=== PATIENT | male | born 1940 | race Caucasian/White ===

== ENCOUNTER 2017-01-26 18:44 | Inpatient (IN) | payer OTHER, BC ==
[2017-01-26] MEDS ORDERED: SODIUM CHLORIDE 1,000 ML IV SCH (18:45)
--- NOTE | 2017-01-26 19:01 | PDOC ---
[id number] No Limitations - History of Present Illness Initial Comments: 01/26/17 20:02 This patient was seen and evaluated immediately upon arrival to the ED and this note was entered at a later point of time. The patient is a 76 year old male, with a significant past medical history of hypertension and BPH, who presents to the emergency department via EMS with right sided weakness and right facial droop since approximately 5:30 this evening. EMS was activated after symptoms were persistent and the patient was brought to the ED for further evaluation. Code verdin was activated immediately upon arrival to the ED. The patients girlfriend is at the bedside. Last time known well: 17:30. Allergies: Shellfish derived. Past Surgical History: None reported. Social History: Non smoker. Reports social alcohol consumption. Denies drug use. PCP: Dr. Veronica Scruggs <Shannen Rey - Last Filed: 01/26/17 20:56> - General History Source: Patient, EMS, Significant Other Exam Limitations: No Limitations <Lorenzo Owens - Last Filed: 01/27/17 15:39> - General Stated Complaint: STROKE Time Seen by Provider: 01/26/17 18:45 Past History <Shannen Rey - Last Filed: 01/26/17 20:56> - Past Medical History HTN: Yes Other medical history: enlarged prostate - Psycho/Social/Smoking Cessation Hx Suicidal Ideation: No Smoking History: Never smoked <Lorenzo Owens - Last Filed: 01/27/17 15:39> - Past Medical History Allergies/Adverse Reactions: Allergies Allergy/AdvReac Type Severity Reaction Status Date / Time shellfish derived Allergy Verified 01/26/17 18:50 Home Medications: Ambulatory Orders Clonidine HCl 0.2 mg PO BID 01/26/17 Tamsulosin HCl 0.4 mg PO DAILY 01/26/17 Review of Systems - Review of Systems Able to Perform ROS?: Yes Comments:: 01/26/17 19:59 GENERAL/CONSTITUTIONAL: No fever or chills. No weakness. HEAD, EYES, EARS, NOSE AND THROAT: No change in vision. No ear pain or discharge. No sore throat. CARDIOVASCULAR: No chest pain or shortness of breath. RESPIRATORY: No cough, wheezing, or hemoptysis. GASTROINTESTINAL: No nausea, vomiting, diarrhea or constipation. GENITOURINARY: No dysuria, frequency, or change in urination. MUSCULOSKELETAL: No joint or muscle swelling or pain. No neck or back pain. SKIN: No rash. NEUROLOGIC: +Right facial droop, right sided weakness. No headache, vertigo, loss of consciousness. ENDOCRINE: No increased thirst. No abnormal weight change. HEMATOLOGIC/LYMPHATIC: No anemia, easy bleeding, or history of blood clots. ALLERGIC/IMMUNOLOGIC: No hives or skin allergy. <Shannen Rey - Last Filed: 01/26/17 20:56> *Physical Exam - Vital Signs Last Vital Signs Temp Pulse Resp BP Pulse Ox 97.5 F L 96 H 20 168/130 100 01/26/17 18:50 01/26/17 19:39 01/26/17 19:39 01/26/17 19:39 01/26/17 18:50 - Physical Exam Comments: 01/26/17 20:19 GENERAL: Awake, alert, and fully oriented. HEAD: No signs of trauma. EYES: PERRLA, EOMI, sclera anicteric, conjunctiva clear. ENT: Auricles normal inspection, hearing grossly normal, nares patent, oropharynx clear without exudates. Moist mucosa. NECK: Normal ROM, supple, no lymphadenopathy, JVD, or masses. LUNGS: Breath sounds equal, clear to auscultation bilaterally. No wheezes, and no crackles. HEART: Regular rate and rhythm, normal S1 and S2, no murmurs, rubs or gallops. ABDOMEN: Soft, nontender, normoactive bowel sounds. No guarding, no rebound. No masses. EXTREMITIES: Normal range of motion, no edema. No clubbing or cyanosis. No cords , erythema, or tenderness. SKIN: Warm, dry, normal turgor, no rashes or lesions noted. <Shannen Rey - Last Filed: 01/26/17 20:56> - Vital Signs Last Vital Signs Temp Pulse Resp BP Pulse Ox 97.5 F L 53 L 18 196/135 100 01/26/17 18:50 01/26/17 18:50 01/26/17 18:50 01/26/17 18:50 01/26/17 18:50 - Physical Exam Comments: On initial examination: R facial droop, decreased strength RUE and RLE. +slurred speech. <GracielaLorenzo - Last Filed: 01/27/17 15:39> NIH Stroke Scale - Last Known Well Date/Time & Onset Date Last Known Well: 01/26/17 Time Last Known Well: 17:30 - Initial Evaluation Level of consciousness: Alert Ask patient the month and their age: Answers both correctly Ask patient to open & close eyes; make fist and let go: Obeys both correctly Best gaze (horizontal eye movement): Normal Visual field testing: No visual field loss Facial paresis (Show teeth/raise eyebrows/close eyes tight): Minor paralysis ( flattened nasolabial fold, asymmetry on smiling) Motor Function: Left Arm: Normal Motor Function: Right Arm: No effort against gravity Motor Function: Left Leg: Normal (extends leg 30 degrees for 5 seconds without drift) Motor Function: Right Leg: Some effort against gravity Limb Ataxia: No ataxia Sensory(Use pinprick test arms,legs,trunk,face/side to side): Normal Best language (Describe picture, name items, read sentences): No Aphasia Dysarthria (read several words): Mild to moderate slurring of words Extinction and Inattention: No abnormality - Total Score NIH Stroke Scale Score: 7 <Lorenzo Owens - Last Filed: 01/27/17 15:39> tPA Exclusion Checklist 0-3hr - Time Elapsed Date last known well: 01/26/17 Time last known well: 17:30 Elaspsed time: Day(s) and 22 Hour(s) and 8 Minutes - Thrombolytic Therapy Candidate Is the patient eligible for Thrombolytic Therapy?: No - Exclusion Criteria 0-3hr SBP greater than 185 or DBP greater than 110mmHg despite tx: Yes - Relative Exclusion Criteria 0-3h Rapid improvement: Yes - Ineligibility reason(s) Reasons No tPA given: See reason(s) noted above <GracielaLorenzo - Last Filed: 01/27/17 15:39> TIA Risk Factors - ABCD Score Age: Age = or > 60 Blood Pressure: SBP =/> 140 Clinical Features of TIA: Uni wk w/wo speech impair Duration: TIA duration = or > 60min Diabetes: No Total ABCD2 Score (0-7):: 6 <Lorenzo Owens - Last Filed: 01/27/17 15:39> Heart Score/ECG Review #1 ECG reviewed & interpreted by me at: 19:00 01/26/17 19:27 NSr 98, no std/lupillo, T wave flat III, normal axis, normal deviation, QTC 449 msec <Lorenzo Owens - Last Filed: 01/27/17 15:39> Critical Care Time/MDM Note Total Critical Care Time: 35 Critical Care Statement: The care of this patient involved high complexity decision making to prevent further life threatening deterioration of the patient 's condition and/or to evalute & treat vital organ system(s) failure or risk of failure. - Medical Decision Making Note: 01/26/17 19:54 EXAM: RAD/CHEST X-RAY PORTABLE Reviewed By: Dr. Alexandra Pardo IMPRESSION: No acute cardiopulmonary disease is present. EXAM: CT/ HEAD CT (STROKE) Reviewed By: Dr. Alexandra Pardo IMPRESSION: Moderate atrophy, ventricular dilatation and chronic microvascular ischemic changes. No gross acute infarct is identified. Correlate clinically to determine further evaluation and follow-up. Call placed to [facility] at 19:01. Referred to answering service, awaiting callback. Dr. Banuelos returned call at 19 :02, case discussed. Documentation prepared by Shannen Rey, acting as medical billing assistant for Lorenzo Owens MD. <Shannen Rey - Last Filed: 01/26/17 20:56> - Medical Decision Making Note: 01/26/17 19:44 A portion of this note was documented by scribe services under my direction. I have reviewed the details of the note, within reason, and agree with the documentation with the following case summary and management plan written by me. Patient treated in the ED. Nursing notes are reviewed and incorporated into the medical decision-making. Vital signs reviewed. Peripheral IV access obtained by the nurse, laboratory studies are drawn and sent, reviewed and interpreted by myself. Vital Signs Temp Pulse Resp BP Pulse Ox 97.5 F L 96 H 20 168/130 100 01/26/17 18:50 01/26/17 19:39 01/26/17 19:39 01/26/17 19:39 01/26/17 18:50 76 year old male with past medical history of HTN, BPH p/w right sided weakness. According to EMS and the patient, the patient was having sex with his girlfriend. Reported the event was 45 minutes. After sex, the patient started to develop right sided weakness and right facial droop and slurred speech at 17: 30. The patient was noted to have persistent symptoms and patient was sent to the ED. Upon arrival, pt was noted to have R facial droop, RUE and RLE. Code edmonds was immediately activated. The patient went for the head CT and came back and noted to have resolved symptoms. The patient was re-examined and has CN II-XII intact, 5/5 strength upper and lower extremities, sensation intact, no drift, no dysmetria, heel to henson intact. Given that the patient had rapid improvement, the patient is ineligible for TPA. Case discussed with Dr. Banuelos. Agrees with hold off from TPA. Requests CTA of head and neck. 01/26/17 20:52 CBC, BMP 01/26/17 19:00 01/26/17 19:00 CMP Sodium 142 mmol/L (136-145) 01/26/17 19:00 Potassium 4.0 mmol/L (3.5-5.1) 01/26/17 19:00 Chloride 104 mmol/L (98-107) 01/26/17 19:00 Carbon Dioxide 26 mmol/L (21-32) 01/26/17 19:00 Anion Gap 12 (8-16) 01/26/17 19:00 BUN 19 mg/dL (7-18) H 01/26/17 19:00 Creatinine 0.9 mg/dL (0.7-1.3) 01/26/17 19:00 Creat Clearance w eGFR > 60 (>60) 01/26/17 19:00 POC Glucometer 115.59035 UNITS (()) 01/26/17 18:57 Random Glucose 98 mg/dL (74-106) 01/26/17 19:00 Calcium 9.8 mg/dL (8.5-10.1) 01/26/17 19:00 Total Bilirubin 0.4 mg/dL (0.2-1.0) 01/26/17 19:00 AST 22 U/L (15-37) 01/26/17 19:00 ALT 30 U/L (12-78) 01/26/17 19:00 Alkaline Phosphatase 96 U/L (45-117) 01/26/17 19:00 Creatine Kinase 157 IU/L (39-308) 01/26/17 19:00 CK-MB (CK-2) Rel Index Cancelled 01/26/17 19:00 Troponin I < 0.02 ng/ml (0.00-0.05) 01/26/17 19:00 Total Protein 7.4 g/dl (6.4-8.2) 01/26/17 19:00 Albumin 4.3 g/dl (3.4-5.0) 01/26/17 19:00 Triglycerides 147 mg/dL (35-160) 01/26/17 19:00 Cholesterol 213 mg/dL (50-200) H 01/26/17 19:00 Total LDL Cholesterol 132 mg/dL (5-100) H 01/26/17 19:00 HDL Cholesterol 59 mg/dL (40-60) 01/26/17 19:[address] Mccormack. She accepts patient to stroke unit admission. <Lorenzo Owens - Last Filed: 01/27/17 15:39> Discharge Disposition <Shannen Rey - Last Filed: 01/26/17 20:56> - Discharge Dispostion Admit: Yes <Lorenzo Owens - Last Filed: 01/27/17 15:39> - Diagnosis TIA (transient ischemic attack) Qualifiers: Transient cerebral ischemia type: unspecified Qualified Code(s): G45.9 - Transient cerebral ischemic attack, unspecified - Referrals
[2017-01-26 19:13] VITALS: BMI 22.9
[2017-01-26] MEDS ORDERED: ASPIRIN 81 MG CHEWABLE TABLETS PO ONE (19:53)
[2017-01-26 19:54] LABS: BASOPHIL 0.4 % (0-2.0); EOSINOPHIL 1.7 % (0-4.5); MCH 31.5 pg (25.7-33.7); MCHC 33.3 g/dl (32.0-35.9); MEAN CELL VOLUME 94.6 fl (80-96); MEAN PLT VOLUME 10.3 fl (7.5-11.1); NEUTROPHILS 71.9 % (42.8-82.8); PLATELET COUNT 222 K/MM3 (134-434); RDW 15.3 % (11.9-15.9); WHITE BLOOD COUNT 9.7 K/mm3 (4.0-10.0)
[2017-01-26 20:22] LABS: INR 1.04 (0.82-1.09); PROTHROMBIN TIME (PATIENT) 11.5 SEC (9.98-11.88)
[2017-01-26 20:36] LABS: ALBUMIN 4.3 g/dl (3.4-5.0); ANION GAP 12 (8-16); CALCIUM 9.8 mg/dL (8.5-10.1); CHOLESTEROL 213 mg/dL (50-200); CO2 26 mmol/L (21-32); CREATININE 0.9 mg/dL (0.7-1.3); GLUCOSE,RANDOM 98 mg/dL (74-106); LDL CHOLESTEROL (ONLY SJRH) 132 mg/dL (5-100); SGOT/AST 22 U/L (15-37); SGPT/ALT 30 U/L (12-78)
[2017-01-26 20:37] LABS: ALK PHOS 96 U/L (45-117); BILIRUBIN,TOTAL 0.4 mg/dL (0.2-1.0); TOT PROT 7.4 g/dl (6.4-8.2); TROPONIN I < 0.02 ng/ml (0.00-0.05)
[2017-01-26] MEDS ORDERED: cloNIDine HCL 0.1 MG TABLET PO ONE (20:52)
[2017-01-26] MEDS ORDERED: METOPROLOL TARTRATE 5 MG/5 ML VIAL IVPUSH PRN (21:26)
--- NOTE | 2017-01-26 21:27 | HP ---
<Isabel Wu - Last Filed: 01/26/17 22:21> CHIEF COMPLAINT: right sided weakness x1 episode PCP: HISTORY OF PRESENT ILLNESS: 76 year old male that presents to the Emergency Department on January 26, 2017 after an on set of right sided weakness that occurred around 5:30 PM. Patient had poor recollection of events however, his girlfriend is providing detailed history. There was no syncope or fall. There was no preceding dizziness or lightheadedness. His symptoms resolved prior to arrival to the Emergency Department. 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 He is compliant with his home hypertension medication however, reports fluctuation of blood pressure. He is not taking aspirin. Upon arrival as per Emergency Department records NIH stroke scale was 7 he was found to not be candidate for TPA due to diastolic blood pressure over 110 and time elapsed. ECG normal sinus at 98, no std/lupillo, T wave flat III, normal axis, normal deviation, QTC 449 msec Recent Travel: none PAST MEDICAL HISTORY: hypertension, BPH, TIA PAST SURGICAL HISTORY: none Social History: Lives with his , retired Smoking: former 20 pack smoker quit 7 years ago Alcohol: social use Drugs: none Family History: mother [place] and diabetes Allergies shellfish derived Allergy (Verified 01/26/17 18:50) HOME MEDICATIONS: Home Medications Medication Instructions Recorded Clonidine HCl 0.2 mg PO BID 01/26/17 Tamsulosin HCl 0.4 mg PO DAILY 01/26/17 REVIEW OF SYSTEMS CONSTITUTIONAL: Absent: fever, chills, diaphoresis, generalized weakness, malaise, loss of appetite, weight change HEENT: Absent: rhinorrhea, nasal congestion, throat pain, throat swelling, difficulty swallowing, mouth swelling, ear pain, eye pain, visual changes CARDIOVASCULAR: Present: uncontrolled blood pressure Absent: chest pain, syncope, palpitations, irregular heart rate, lightheadedness , peripheral edema RESPIRATORY: Absent: cough, shortness of breath, dyspnea with exertion, orthopnea, wheezing, stridor, hemoptysis GASTROINTESTINAL: Absent: abdominal pain, abdominal distension, nausea, vomiting, diarrhea, constipation, melena, hematochezia GENITOURINARY: Present: urinary frequency Absent: dysuria, urgency, hesitancy, hematuria, flank pain, genital pain MUSCULOSKELETAL: Absent: myalgia, arthralgia, joint swelling, back pain, neck pain SKIN: Absent: rash, itching, pallor HEMATOLOGIC/IMMUNOLOGIC: Absent: easy bleeding, easy bruising, lymphadenopathy, frequent infections ENDOCRINE: Absent: unexplained weight gain, unexplained weight loss, heat intolerance, cold intolerance NEUROLOGIC: Absent: headache, focal weakness or paresthesias, dizziness, unsteady gait, seizure, mental status changes, bladder or bowel incontinence PSYCHIATRIC: Absent: anxiety, depression, suicidal or homicidal ideation, hallucinations. PHYSICAL EXAMINATION VS: Last Vital Signs Temp Pulse Resp BP Pulse Ox 97.5 F L 96 H 20 168/130 100 01/26/17 18:50 01/26/17 19:39 01/26/17 19:39 01/26/17 19:39 01/26/17 18:50 GENERAL: Awake, alert, and fully oriented, in no acute distress. HEAD: Normal with no signs of trauma. EYES: Pupils equal, round and reactive to light, extraocular movements intact, sclera anicteric, conjunctiva clear. No lid lag. EARS, NOSE, THROAT: Ears normal, nares patent, oropharynx clear without exudates. Moist mucous membranes. NECK: Normal range of motion, supple without lymphadenopathy, JVD, or masses. LUNGS: Breath sounds equal, clear to auscultation bilaterally. No wheezes, and no crackles. No accessory muscle use. HEART: Regular rate and rhythm, normal S1 and S2 without murmur, rub or gallop. ABDOMEN: Soft, nontender, not distended, normoactive bowel sounds, no guarding, no rebound, no masses. No hepatomegaly or splenomegaly. MUSCULOSKELETAL: Normal range of motion at all joints. No bony deformities or tenderness. No CVA tenderness. UPPER EXTREMITIES: 2+ pulses, warm, well-perfused. No cyanosis. No clubbing. No peripheral edema. LOWER EXTREMITIES: 2+ pulses, warm, well-perfused. No calf tenderness. No peripheral edema. NEUROLOGICAL: Cranial nerves II-XII intact. Normal speech. Normal gait. PSYCHIATRIC: Cooperative. Good eye contact. Appropriate mood and affect. SKIN: Warm, dry, normal turgor, no rashes or lesions noted, normal capillary refill. LABS: CBCD WBC 9.7 K/mm3 (4.0-10.0) 01/26/17 19:00 RBC 4.75 M/mm3 (4.00-5.60) 01/26/17 19:00 Hgb 15.0 GM/dL (11.7-16.9) 01/26/17 19:00 Hct 44.9 % (35.4-49) 01/26/17 19:00 MCV 94.6 fl (80-96) 01/26/17 19:00 MCHC 33.3 g/dl (32.0-35.9) 01/26/17 19:00 RDW 15.3 % (11.9-15.9) 01/26/17 19:00 Plt Count 222 K/MM3 (134-434) 01/26/17 19:00 MPV 10.3 fl (7.5-11.1) 01/26/17 19:00 CMP Sodium 142 mmol/L (136-145) 01/26/17 19:00 Potassium 4.0 mmol/L (3.5-5.1) 01/26/17 19:00 Chloride 104 mmol/L (98-107) 01/26/17 19:00 Carbon Dioxide 26 mmol/L (21-32) 01/26/17 19:00 Anion Gap 12 (8-16) 01/26/17 19:00 BUN 19 mg/dL (7-18) H 01/26/17 19:00 Creatinine 0.9 mg/dL (0.7-1.3) 01/26/17 19:00 Creat Clearance w eGFR > 60 (>60) 01/26/17 19:00 Calcium 9.8 mg/dL (8.5-10.1) 01/26/17 19:00 Total Bilirubin 0.4 mg/dL (0.2-1.0) 01/26/17 19:00 AST 22 U/L (15-37) 01/26/17 19:00 ALT 30 U/L (12-78) 01/26/17 19:00 Alkaline Phosphatase 96 U/L (45-117) 01/26/17 19:00 Total Protein 7.4 g/dl (6.4-8.2) 01/26/17 19:00 Albumin 4.3 g/dl (3.4-5.0) 01/26/17 19:00 ASSESSMENT/PLAN: 76 year old male with history of uncontrolled hypertension that presents s/p transient right sided weakness. TIA/possible CVA- right sided weakness completely resolved CT brain showed no acute abnormality Neurology was consulted by Emergency Department physician. Plan -CT angiogram -Aspirin given -Allow permissive hypertension -Check lipid profile and start statin -ECHO -Carotid dopplers -PT eval and treatment Hypertensive urgency - persistently elevated blood pressure despite administration of clonidine in the Emergency Department - Start on oral lisinopril daily - PRN vasotec for systolic blood pressure above 170 and diastolic above 90 however, will allow permissive hypertension for next 24 hrs Hyperlipidemia - Statin - Outpatient follow up History of BPH- stable no signs of urinary retention - Continue flomax DVT ppx - SCDs and early ambulation This is a 76 year old male that presents with transient right sided weakness and uncontrolled blood pressure and based on his symptoms he meets medical necessity for first midnight for hospitalization due to need for close monitoring on telemetry, imaging studies and optimization of blood pressure control. Admit for observation. Documentation prepared by MANUEL Ascencio, acting as medical typist for Mary Mccormack MD, . <Mary Mccormack - Last Filed: 01/26/17 22:22> Visit type - Emergency Visit Emergency Visit: Yes ED Registration Date: 01/26/17 Care time: The patient presented to the Emergency Department on the above date and was hospitalized for further evaluation of their emergent condition. - New Patient This patient is new to me today: Yes Date on this admission: 01/26/17 - Critical Care Critical Care patient: No
[2017-01-26] MEDS ORDERED: ASPIRIN COATED 81 MG TABLET.EC ONE (21:45)
[2017-01-26] MEDS ORDERED: cloNIDine HCL 0.1 MG TABLET ONE (22:12)
[2017-01-26 23:30] LABS: URINE APPEARANCE CLEAR; URINE BILIRUBIN NEGATIVE (NEGATIVE); URINE BLOOD NEGATIVE (NEGATIVE); URINE COLOR STRAW; URINE GLUCOSE (UA) NEGATIVE (NEGATIVE); URINE KETONE TRACE (NEGATIVE); URINE LEUK ESTERASE NEGATIVE (NEGATIVE); URINE NITRITE NEGATIVE (NEGATIVE); URINE UROBILINOGEN NEGATIVE E.U./dl (0.2-1.0)
[2017-01-27 00:03] LABS: URINE PROTEIN 1+ (NEGATIVE)
[2017-01-27 00:06] LABS: URINE BACTERIA RARE /hpf (NONE SEEN); URINE MUCUS RARE; URINE RBC <1 /hpf (0-3); URINE WBC 5 /hpf (3-5)
[2017-01-27] MEDS ORDERED: TAMSULOSIN HCL 0.4 MG CAP.ER.24H (FP) PO SCH (08:30)
[2017-01-27] MEDS: ASPIRIN COATED 81 MG TABLET.EC PO SCH (10:06)
[2017-01-27] MEDS: LISINOPRIL 20 MG TABLET (FP) PO SCH (10:06)
--- NOTE | 2017-01-27 10:41 | PN ---
Physical Exam: SUBJECTIVE: Patient seen and examined Patient is comfortable with no acute distress, no fever or chills, no nausea or vomiting. No headache. OBJECTIVE: Vital Signs Temperature 98.1 F 01/27/17 08:54 Pulse Rate 68 01/27/17 08:54 Respiratory Rate 20 01/27/17 10:18 Blood Pressure 152/86 01/27/17 08:54 O2 Sat by Pulse Oximetry (%) 100 01/26/17 18:50 GENERAL: The patient is awake, alert, and fully oriented, in no acute distress. HEAD: Normal with no signs of trauma. EYES: PERRL, extraocular movements intact, sclera anicteric, conjunctiva clear. No ptosis. ENT: Ears normal, nares patent, oropharynx clear without exudates, moist mucous membranes. NECK: Trachea midline, full range of motion, supple. LUNGS: Breath sounds equal, clear to auscultation bilaterally, no wheezes, no crackles, no accessory muscle use. HEART: Regular rate and rhythm, S1, S2 without murmur, rub or gallop. ABDOMEN: Soft, nontender, nondistended, normoactive bowel sounds, no guarding, no rebound, no hepatosplenomegaly, no masses. EXTREMITIES: 2+ pulses, warm, well-perfused, no edema. NEUROLOGICAL: Cranial nerves II through XII grossly intact. Normal speech, gait not observed. PSYCH: Normal mood, normal affect. SKIN: Warm, dry, normal turgor, no rashes or lesions noted CBCD WBC 9.7 K/mm3 (4.0-10.0) 01/26/17 19:00 RBC 4.75 M/mm3 (4.00-5.60) 01/26/17 19:00 Hgb 15.0 GM/dL (11.7-16.9) 01/26/17 19:00 Hct 44.9 % (35.4-49) 01/26/17 19:00 MCV 94.6 fl (80-96) 01/26/17 19:00 MCHC 33.3 g/dl (32.0-35.9) 01/26/17 19:00 RDW 15.3 % (11.9-15.9) 01/26/17 19:00 Plt Count 222 K/MM3 (134-434) 01/26/17 19:00 MPV 10.3 fl (7.5-11.1) 01/26/17 19:00 CMP Sodium 142 mmol/L (136-145) 01/26/17 19:00 Potassium 4.0 mmol/L (3.5-5.1) 01/26/17 19:00 Chloride 104 mmol/L (98-107) 01/26/17 19:00 Carbon Dioxide 26 mmol/L (21-32) 01/26/17 19:00 Anion Gap 12 (8-16) 01/26/17 19:00 BUN 19 mg/dL (7-18) H 01/26/17 19:00 Creatinine 0.9 mg/dL (0.7-1.3) 01/26/17 19:00 Creat Clearance w eGFR > 60 (>60) 01/26/17 19:00 Random Glucose 98 mg/dL (74-106) 01/26/17 19:00 Calcium 9.8 mg/dL (8.5-10.1) 01/26/17 19:00 Total Bilirubin 0.4 mg/dL (0.2-1.0) 01/26/17 19:00 AST 22 U/L (15-37) 01/26/17 19:00 ALT 30 U/L (12-78) 01/26/17 19:00 Alkaline Phosphatase 96 U/L (45-117) 01/26/17 19:00 Total Protein 7.4 g/dl (6.4-8.2) 01/26/17 19:00 Albumin 4.3 g/dl (3.4-5.0) 01/26/17 19:00 CARDIAC ENZYMES Creatine Kinase 157 IU/L (39-308) 01/26/17 19:00 Troponin I < 0.02 ng/ml (0.00-0.05) 01/26/17 19:00 Active Medications Generic Name Dose Route Start Last Admin Trade Name Arianq PRN Reason Stop Dose Admin Aspirin 81 mg 01/27/17 10:00 01/27/17 10:06 Ecotrin - PO 81 mg DAILY LAMONTE Administration Sodium Chloride 1,000 mls @ 42 mls/hr 01/26/17 21:30 Normal Saline - IV ASDIR LAMONTE Lisinopril 20 mg 01/27/17 10:00 01/27/17 10:06 Prinivil PO 20 mg DAILY LAMONTE Administration Metoprolol Tartrate 5 mg 01/26/17 21:26 Lopressor Injection - IVPUSH Q4H PRN HYPERTENSION Tamsulosin HCl 0.4 mg 01/27/17 08:30 01/27/17 10:06 Flomax - PO 0.4 mg DAILY@0830 LAMONTE Administration ASSESSMENT/PLAN: 76 year old man with history of hypertension, BPH, presented with right side weakness. As per chart, the patient noted sudden onset of right hemiparesis while engaging in intercourse with his girlfriend, lasting approximately 45 minutes. The patient arrived at the ED yesterday, was noted to have an NIHSS 7, ct head was unremarkable. Code verdin was activated, however by the time the patient returned from CT his symptoms had resolved. Due to spontaneously resolving symptoms, he was not a candidate for IV-TPA. #TIA r/o CVA- right sided weakness completely resolved; CT brain showed no acute abnormality Neurology consult appreciated ordered Brain CTA ;result is pending , MRI is ordered , continue with Aspirin Carotid doppler reviewed, continue aspirin and will start the patient on Lipitor #Hypertensive urgency - on IV lopressor and Lisinipril daily # Hyperlipidemia continue Statin # History of BPH- stable no signs of urinary retention, continue flomax DVT ppx: SCDs and early ambulation Visit type - Emergency Visit Emergency Visit: Yes ED Registration Date: 01/26/17 Care time: The patient presented to the Emergency Department on the above date and was hospitalized for further evaluation of their emergent condition. - New Patient This patient is new to me today: Yes Date on this admission: 01/27/17 - Critical Care Critical Care patient: No
[2017-01-27 12:16] LABS: ALBUMIN 3.8 g/dl (3.4-5.0); ANION GAP 9 (8-16); CALCIUM 10.1 mg/dL (8.5-10.1); CO2 29 mmol/L (21-32); GLUCOSE,RANDOM 91 mg/dL (74-106); MAGNESIUM 2.3 mg/dL (1.8-2.4)
--- NOTE | 2017-01-27 12:19 | EKG ---
Test Reason : Blood Pressure : / mmHG Vent. Rate : 098 BPM Atrial Rate : 098 BPM P-R Int : 160 ms QRS Dur : 084 ms QT Int : 352 ms P-R-T Axes : 037 -13 033 degrees QTc Int : 449 ms NORMAL SINUS RHYTHM POSSIBLE LEFT ATRIAL ENLARGEMENT BORDERLINE ECG NO PREVIOUS ECGS AVAILABLE Confirmed by CELIA PATEL, LESLIE ([id number]) on 01/27/2017 12:19:34 PM Referred By: Confirmed By:LESLIE YANG MD
[2017-01-27 12:27] LABS: ALK PHOS 93 U/L (45-117); BILIRUBIN,TOTAL 0.6 mg/dL (0.2-1.0); CREATININE 0.9 mg/dL (0.7-1.3); PHOSPHOROUS 1.7 mg/dL (2.5-4.9); SGOT/AST 15 U/L (15-37); SGPT/ALT 28 U/L (12-78); TOT PROT 6.8 g/dl (6.4-8.2)
--- NOTE | 2017-01-27 12:46 | CONSULT ---
Consult Consult Specialty:: Neurology Reason for Consultation:: Right side weakness - History of Present Illness Chief Complaint: Right side weakness History of Present Illness: 76 year old man with history of hypertension, BPH, presented with right side weakness. As per chart, the patient noted sudden onset of right hemiparesis while engaging in intercourse with his girlfriend, lasting approximately 45 minutes. The patient arrived at the ED yesterday, was noted to have an NIHSS 7, ct head was unremarkable. Code verdin was activated, however by the time the patient returned from CT his symptoms had resolved. Due to spontaneously resolving symptoms, he was not a candidate for IV-TPA. The patient does report a similar episode years ago noted during exertion. Currently denies any recurrent symptoms, back to baseline - History Source History Provided By: Patient - Past Medical History Cardio/Vascular: Yes: HTN - Alcohol/Substance Use Hx Alcohol Use: Yes - Smoking History Smoking history: Never smoked Have you smoked in the past 12 months: No Home Medications - Allergies Allergies/Adverse Reactions: Allergies Allergy/AdvReac Type Severity Reaction Status Date / Time shellfish derived Allergy Verified 01/26/17 18:50 - Home Medications Home Medications: Ambulatory Orders Clonidine HCl 0.2 mg PO BID 01/26/17 Tamsulosin HCl 0.4 mg PO DAILY 01/26/17 Family Disease History - Family Disease History Family History: Denies Review of Systems - Review of Systems Constitutional: reports: No Symptoms Eyes: reports: No Symptoms HENT: reports: No Symptoms Neck: reports: No Symptoms Cardiovascular: reports: No Symptoms Respiratory: reports: No Symptoms Neurological: reports: Weakness Physical Exam Vital Signs: Vital Signs Temperature 98.1 F 01/27/17 08:54 Pulse Rate 68 01/27/17 08:54 Respiratory Rate 20 01/27/17 10:18 Blood Pressure 152/86 01/27/17 08:54 O2 Sat by Pulse Oximetry (%) 100 01/26/17 18:50 Constitutional: Yes: Well Nourished, No Distress Eyes: Yes: Conjunctiva Clear, EOM Intact HENT: Yes: Atraumatic, Normocephalic Cardiovascular: Yes: S1, S2 Respiratory: Yes: Regular Neurological: Yes: Alert, Oriented, Cran Nerves II-XII Intact ...Motor Strength: WNL Labs: CBC, BMP 01/27/17 11:11 Assessment/Plan 76 year old man with history of hypertension, BPH, presented with right side weakness. As per chart, the patient noted sudden onset of right hemiparesis while engaging in intercourse with his girlfriend, lasting approximately 45 minutes. The patient arrived at the ED yesterday, was noted to have an NIHSS 7, ct head was unremarkable. Code verdin was activated, however by the time the patient returned from CT his symptoms had resolved. Due to spontaneously resolving symptoms, he was not a candidate for IV-TPA. The patient does report a similar episode years ago noted during exertion. Currently denies any recurrent symptoms, back to baseline Right hemiparesis, resolved NIHSS 0 CT head no acute findings CD intimal thickening left common carotid artery CTA head and neck report pending MRI brain pending Echocardiogram pending Continue aspirin, statin Hga1c 6.3, ldl 132 Further recommendations based on above testing
[2017-01-27] MEDS: ATORVASTATIN CA 10 MG TABLET (FP) PO SCH (22:24)
[2017-01-27] MEDS: SODIUM CHLORIDE 1,000 ML IV SCH (22:34)
[2017-01-27] MEDS ORDERED: diphenhydrAMINE HCL 25 MG CAPSULE (FP) PO ONE (22:43)
[2017-01-27] MEDS ORDERED: ALBUTEROL SO4 0.083% IH SOL 2.5 MG/3 ML VIAL.NEB. NEB ONE (22:43)
--- NOTE | 2017-01-27 22:46 | HOSP ---
Subjective - Review of Symptoms Events since last encounter: Paged regarding wheezing. Pt has some wheezing on exam and alb neb treatment x 1 ordered. Pt is also insistent that he takes flomax at night and is states that he needs it at this time since he is constantly urinating but not completely emptying. I spoke to him regarding the medication and that it is usually given in the morning but he is adamant he takes it at night daily. At this time I have changed his flomax to qhs and given him one dose tonight as well. Pt also says he has some cough because he takes benadryl daily and has not gotten it here. I have ordered one dose of 25 mg benadryl at this time. Physical Examination Vital Signs: Vital Signs Temperature 98.1 F 01/27/17 16:42 Pulse Rate 61 01/27/17 16:42 Respiratory Rate 20 01/27/17 16:42 Blood Pressure 164/89 01/27/17 16:42 O2 Sat by Pulse Oximetry (%) 100 01/26/17 18:50 Labs: CBC, BMP 01/27/17 11:11 Visit type - Emergency Visit Emergency Visit: Yes ED Registration Date: 01/26/17 Care time: The patient presented to the Emergency Department on the above date and was hospitalized for further evaluation of their emergent condition. - New Patient This patient is new to me today: Yes Date on this admission: 02/01/17 - Critical Care Critical Care patient: No
[2017-01-27] MEDS: TAMSULOSIN HCL 0.4 MG CAP.ER.24H (FP) PO SCH (22:54)
[2017-01-28] MEDS: ASPIRIN COATED 81 MG TABLET.EC PO SCH (10:13)
[2017-01-28] MEDS: LISINOPRIL 20 MG TABLET (FP) PO SCH (10:13)
--- NOTE | 2017-01-28 12:03 | PN ---
Progress Note (short form) - Note Progress Note: Consult Specialty:: Neurology Reason for Consultation:: Right side weakness - History of Present Illness Chief Complaint: Right side weakness History of Present Illness: 76 year old man with history of hypertension, BPH, presented with right side weakness. As per chart, the patient noted sudden onset of right hemiparesis while engaging in intercourse with his girlfriend, lasting approximately 45 minutes. The patient arrived at the ED yesterday, was noted to have an NIHSS 7, ct head was unremarkable. Code verdin was activated, however by the time the patient returned from CT his symptoms had resolved. Due to spontaneously resolving symptoms, he was not a candidate for IV-TPA. The patient does report a similar episode years ago noted during exertion. Currently denies any recurrent symptoms, back to baseline - History Source History Provided By: Patient - Past Medical History Cardio/Vascular: Yes: HTN - Alcohol/Substance Use Hx Alcohol Use: Yes - Smoking History Smoking history: Never smoked Have you smoked in the past 12 months: No Home Medications - Allergies Allergies/Adverse Reactions: Allergies Allergy/AdvReac Type Severity Reaction Status Date / Time shellfish derived Allergy Verified 01/26/17 18:50 - Home Medications Home Medications: Ambulatory Orders Clonidine HCl 0.2 mg PO BID 01/26/17 Tamsulosin HCl 0.4 mg PO DAILY 01/26/17 Family Disease History - Family Disease History Family History: Denies Review of Systems - Review of Systems Constitutional: reports: No Symptoms Eyes: reports: No Symptoms HENT: reports: No Symptoms Neck: reports: No Symptoms Cardiovascular: reports: No Symptoms Respiratory: reports: No Symptoms Neurological: reports: Weakness Physical Exam Vital Signs: Vital Signs Temperature 98.1 F 01/27/17 08:54 Pulse Rate 68 01/27/17 08:54 Respiratory Rate 20 01/27/17 10:18 Blood Pressure 152/86 01/27/17 08:54 O2 Sat by Pulse Oximetry (%) 100 01/26/17 18:50 Constitutional: Yes: Well Nourished, No Distress Eyes: Yes: Conjunctiva Clear, EOM Intact HENT: Yes: Atraumatic, Normocephalic Cardiovascular: Yes: S1, S2 Respiratory: Yes: Regular Neurological: Yes: Alert, Oriented, Cran Nerves II-XII Intact ...Motor Strength: WNL Labs: CBC, BMP 01/27/17 11:11 Assessment/Plan 76 year old man with history of hypertension, BPH, presented with right side weakness. As per chart, the patient noted sudden onset of right hemiparesis while engaging in intercourse with his girlfriend, lasting approximately 45 minutes. The patient arrived at the ED yesterday, was noted to have an NIHSS 7, ct head was unremarkable. Code verdin was activated, however by the time the patient returned from CT his symptoms had resolved. Due to spontaneously resolving symptoms, he was not a candidate for IV-TPA. The patient does report a similar episode years ago noted during exertion. Currently denies any recurrent symptoms, back to baseline Left parietal stroke, right side weakness NIHSS 0 CT head no acute findings MRI brain left parietal lobe stroke, left frontal ? 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
--- NOTE | 2017-01-28 12:12 | PN ---
Progress Note (short form) - Note Progress Note: Patient is comfortable with no acute distress , no headache, no nausea or vomiting, no abdominal pain. Temperature 98.4 F 01/28/17 10:00 Pulse Rate 54 L 01/28/17 10:00 Respiratory Rate 20 01/28/17 10:00 Blood Pressure 156/92 01/28/17 10:00 O2 Sat by Pulse Oximetry (%) 100 01/26/17 18:50 GENERAL: The patient is awake, alert, and fully oriented, in no acute distress. HEAD: Normal with no signs of trauma. EYES: PERRL, extraocular movements intact, sclera anicteric, conjunctiva clear. ENT: Ears normal, oropharynx clear without exudates, moist mucous membranes. NECK: Trachea midline, full range of motion, supple. LUNGS: Breath sounds equal, clear to auscultation bilaterally, no wheezes, no crackles, no accessory muscle use. HEART: Regular rate and rhythm, S1, S2 without murmur, rub or gallop. ABDOMEN: Soft, nontender, nondistended, normoactive bowel sounds, no guarding, no rebound, no hepatosplenomegaly, no masses. EXTREMITIES: 2+ pulses, warm, well-perfused, no edema. NEUROLOGICAL: Cranial nerves II through XII grossly intact. Normal speech, gait not observed. PSYCH: Normal mood, normal affect. SKIN: Warm, dry, normal turgor, no rashes or lesions noted CBCD WBC 9.7 K/mm3 (4.0-10.0) 01/26/17 19:00 RBC 4.75 M/mm3 (4.00-5.60) 01/26/17 19:00 Hgb 15.0 GM/dL (11.7-16.9) 01/26/17 19:00 Hct 44.9 % (35.4-49) 01/26/17 19:00 MCV 94.6 fl (80-96) 01/26/17 19:00 MCHC 33.3 g/dl (32.0-35.9) 01/26/17 19:00 RDW 15.3 % (11.9-15.9) 01/26/17 19:00 Plt Count 222 K/MM3 (134-434) 01/26/17 19:00 MPV 10.3 fl (7.5-11.1) 01/26/17 19:00 CMP Sodium 143 mmol/L (136-145) 01/27/17 11:11 Potassium 4.0 mmol/L (3.5-5.1) 01/27/17 11:11 Chloride 105 mmol/L (98-107) 01/27/17 11:11 Carbon Dioxide 29 mmol/L (21-32) 01/27/17 11:11 Anion Gap 9 (8-16) 01/27/17 11:11 BUN 17 mg/dL (7-18) 01/27/17 11:11 Creatinine 0.9 mg/dL (0.7-1.3) 01/27/17 11:11 Creat Clearance w eGFR > 60 (>60) 01/27/17 11:11 Random Glucose 91 mg/dL (74-106) 01/27/17 11:11 Calcium 10.1 mg/dL (8.5-10.1) 01/27/17 11:11 Total Bilirubin 0.6 mg/dL (0.2-1.0) D 01/27/17 11:11 AST 15 U/L (15-37) D 01/27/17 11:11 ALT 28 U/L (12-78) 01/27/17 11:11 Alkaline Phosphatase 93 U/L (45-117) 01/27/17 11:11 Total Protein 6.8 g/dl (6.4-8.2) 01/27/17 11:11 Albumin 3.8 g/dl (3.4-5.0) 01/27/17 11:11 CARDIAC ENZYMES Creatine Kinase 157 IU/L (39-308) 01/26/17 19:00 Troponin I < 0.02 ng/ml (0.00-0.05) 01/26/17 19:00 Current Medications Generic Name Dose Route Start Last Admin Trade Name Freq PRN Reason Stop Dose Admin Aspirin 81 mg 01/27/17 10:00 01/28/17 10:13 Ecotrin - PO 81 mg DAILY LAMONTE Administration Atorvastatin Calcium 10 mg 01/27/17 22:00 01/27/17 22:24 Lipitor - PO 10 mg HS LAMONTE Administration Sodium Chloride 1,000 mls @ 42 mls/hr 01/26/17 21:30 01/27/17 22:34 Normal Saline - IV 42 mls/hr ASDIR LAMONTE Administration Lisinopril 20 mg 01/27/17 10:00 01/28/17 10:13 Prinivil PO 20 mg DAILY LAMONTE Administration Metoprolol Tartrate 5 mg 01/26/17 21:26 Lopressor Injection - IVPUSH Q4H PRN HYPERTENSION Tamsulosin HCl 0.4 mg 01/27/17 22:43 01/27/17 22:54 Flomax - PO 0.4 mg HS LAMONTE Administration Hga1c 6.3, LDL 132 Home Medications Medication Instructions Recorded Clonidine HCl 0.2 mg PO BID 01/26/17 Tamsulosin HCl 0.4 mg PO DAILY 01/26/17 CT head no acute findings MRI brain 0.3cm acute left parietal lobe stroke, left frontal 0.2cm ? 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 No extracranial right carotid artery stenosis is noted. Moderate stenoses are seen of the paraclinoid segments of the internal carotid arteries. A focal stenosis, probably moderate in degree, is seen of the superior division of the left middle cerebral artery. There is a moderate to marked basilar artery stenosis at the level of the lower third. A moderate to marked stenosis is seen within the proximal aspect of the left posterior cerebral artery. A moderate stenosis of the intracranial right vertebral arteries is noted adjacent to the vertebrobasilar junction. 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 Reported By: Timur Gregorio MD 01/27/[address] CT angiography IMPRESSION: A mild approximately 15% atherosclerotic stenosis is seen of the proximal extracranial left internal carotid artery. No extracranial right carotid artery stenosis is noted. Moderate stenoses are seen of the paraclinoid segments of the internal carotid arteries. A focal stenosis, probably moderate in degree, is seen of the superior division of the left middle cerebral artery. There is a moderate to marked basilar artery stenosis at the level of the lower third. A moderate to marked stenosis is seen within the proximal aspect of the left posterior cerebral artery. A moderate stenosis of the intracranial right vertebral arteries is noted adjacent to the vertebrobasilar junction. 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 As per chart, the patient noted sudden onset of right hemiparesis while engaging in intercourse with his girlfriend, lasting approximately 45 minutes. The patient arrived at the ED yesterday, was noted to have an NIHSS 7, ct head was unremarkable. Code verdin was activated, however by the time the patient returned from CT his symptoms had resolved. Due to spontaneously resolving symptoms, he was not a candidate for IV-TPA. #Left parietal stroke, with possible left frontal stroke with right sided weakness completely resolved; CT brain showed no acute abnormality Neurology consult appreciated Brain CTA was ordered the result as above, MRI is as above , continue with Aspirin discussed with Neurologist to continue with aspirin only no need for aggrenox as per neurologist .Carotid doppler reviewed, continue aspirin and will start the patient on Lipitor #Hypertensive urgency - on IV lopressor and Lisinipril daily # Hyperlipidemia continue Statin # History of BPH- stable no signs of urinary retention, continue flomax DVT ppx: SCDs and early ambulation Echocardiogram pending Continue aspirin, statin Visit type - Emergency Visit Emergency Visit: Yes ED Registration Date: 01/26/17 Care time: The patient presented to the Emergency Department on the above date and was hospitalized for further evaluation of their emergent condition. - New Patient This patient is new to me today: Yes Date on this admission: 01/28/17 - Critical Care Critical Care patient: No
--- NOTE | 2017-01-28 13:45 | PN ---
Progress Note (short form) - Note Progress Note: NEUROSURGERY CONSULT DICTATED Chart reviewed History obtained Pt examined H/o hypertension and BPH, who presents to the emergency department via EMS on with right sided weakness and right facial droop. His symptoms resolved spontaneously while in CT scan PE: T 98.4, 156/92 HEENT- NC/AT; Neck-supple, no bruit; Cor-RRR; Lungs- CTA B; Abd- benign; Ext- no sign of DVT A/A/OX3 Hgb A1C 6.3, Cr 0.[address] (initial) moderate atrophy and periventricular small vessel dz; L parietal hypodensity Brain MRI- moderate atrophy; moderate to marked periventricular dz; L parietal cortical small zone of acute ischemia and ? 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
[2017-01-28] MEDS: SODIUM CHLORIDE 1,000 ML IV SCH ×2 (21:13→21:14)
[2017-01-28] MEDS: TAMSULOSIN HCL 0.4 MG CAP.ER.24H (FP) PO SCH (21:14)
[2017-01-28] MEDS: ATORVASTATIN CA 10 MG TABLET (FP) PO SCH (21:14)
[2017-01-29] MEDS ORDERED: MAGNESIUM OXIDE 400 MG TABLET (FP) PO SCH (10:00)
[2017-01-29] MEDS ORDERED: MAGNESIUM SULF 50% (8.12 MEQ/2 ML-1 GM VIAL) IVPB ONE (10:00)
[2017-01-29] MEDS: ASPIRIN COATED 81 MG TABLET.EC PO SCH (10:42)
[2017-01-29] MEDS: LISINOPRIL 20 MG TABLET (FP) PO SCH (10:42)
--- NOTE | 2017-01-29 11:24 | CONSULT ---
Consult - Past Medical History Cardio/Vascular: Yes: HTN - Alcohol/Substance Use Hx Alcohol Use: Yes - Smoking History Smoking history: Never smoked Have you smoked in the past 12 months: No Home Medications - Allergies Allergies/Adverse Reactions: Allergies Allergy/AdvReac Type Severity Reaction Status Date / Time shellfish derived Allergy Verified 01/26/17 18:50 - Home Medications Home Medications: Ambulatory Orders Clonidine HCl 0.2 mg PO BID 01/26/17 Tamsulosin HCl 0.4 mg PO DAILY 01/26/17 Physical Exam Vital Signs: Vital Signs Temperature 97.7 F 01/29/17 10:00 Pulse Rate 87 01/29/17 10:00 Respiratory Rate 18 01/29/17 10:00 Blood Pressure 151/98 01/29/17 10:00 O2 Sat by Pulse Oximetry (%) 95 01/28/17 21:00 Labs: CBC, BMP 01/27/17 11:11 Assessment/Plan Vascular Surgery 76 year old man with history of hypertension, BPH, presented with right side weakness. As per chart, the patient noted sudden onset of right hemiparesis while engaging in intercourse with his girlfriend, lasting approximately 45 minutes. The patient arrived at the ED yesterday, was noted to have an NIHSS 7, ct head was unremarkable. Code verdin was activated, however by the time the patient returned from CT his symptoms had resolved. Due to spontaneously resolving symptoms, he was not a candidate for IV-TPA. The patient does report a similar episode years ago noted during exertion. Currently denies any recurrent symptoms, back to baseline - History Source History Provided By: Patient - Past Medical History Cardio/Vascular: Yes: HTN - Alcohol/Substance Use Hx Alcohol Use: Yes - Smoking History Smoking history: Never smoked Have you smoked in the past 12 months: No Home Medications - Allergies Allergies/Adverse Reactions: Allergies Allergy/AdvReac Type Severity Reaction Status Date / Time shellfish derived Allergy Verified 01/26/17 18:50 - Home Medications Home Medications: Ambulatory Orders Clonidine HCl 0.2 mg PO BID 01/26/17 Tamsulosin HCl 0.4 mg PO DAILY 01/26/17 A/P CTA and CT head reviewed. No intervention needed for fusiform aneuryms. Can involve neuro-radiology as outpt if this episode occurs again. Aggrenox as per neurosurgery. Medical manageemnt.
[2017-01-29] MEDS ORDERED: NAPH,MB-DB/K PH,MBDB POWDER PACKET PO ONE (12:30)
--- NOTE | 2017-01-29 14:40 | CONS ---
DATE OF CONSULTATION: 01/28/2017 CHIEF COMPLAINT: 1. Transient ischemic attack. 2. History of prior stroke. 3. Hypertension. 4. Borderline diabetes. DISCHARGE DIAGNOSES: 1. Transient ischemic attack. 2. History of prior stroke. 3. Hypertension. 4. Borderline diabetes. REQUESTING PHYSICIAN: Ramesh Unger MD BODY JOINER: Ty Albarran MD, Neurosurgery HISTORY OF PRESENT ILLNESS: The patient is a 76-year-old right-handed male with a history of hypertension and BPH who had previously presented with a minor stroke 3-4 years ago. He was under the care of Dr. Minh Evans at the time. On January 26 in the afternoon he complained of sudden onset of right lower extremity weakness as well as right facial droop. He was brought to the emergency room and underwent an emergency CAT scan of the head. The patient's symptoms resolved spontaneously, and no TPN was given. He underwent MRI examination of the brain as well as CTA of the neck and head. Presently, he denies any headache, nausea, vomiting, seizure activity, weakness, or numbness. His symptoms have completely resolved. His is at bedside during physical examination and consultation. Presently the patient denies any diplopia and has no fevers or chills. PAST MEDICAL HISTORY: Significant for hypertension, BPH, and stroke. CURRENT MEDICATIONS: Include Flomax, Prinivil, Lopressor p.r.n., Lipitor, and baby aspirin. ALLERGIES: SHELLFISH. SOCIAL HISTORY: He smokes cigars. He drinks hard liquor daily. He is retired. He lives at home with his . REVIEW OF SYSTEMS: Otherwise negative for other major cardiovascular, pulmonary , gastrointestinal, genitourinary, endocrinologic, neurologic, or psychological problems except for the above. PHYSICAL EXAMINATION: Vital Signs: Temperature 98.4, blood pressure 156/92, pulse rate 54, O2 saturation 98% on room air. HEENT: Shows him to be normocephalic, atraumatic, anicteric. Neck: Supple with no carotid bruits. Coronary: Demonstrates regular rhythm. Lungs: Clear bilaterally. Abdomen: Benign. He is mildly obese. Extremities: Shows no sign of DVT. Neurologic: He is awake, alert, and oriented x4. Cranial nerve examination is intact 2-12. Motor examination shows 5/5 strength to bilateral upper and lower extremities without drift. Sensory examination is intact to light touch and vibratory sensation. He does have slight diminished vibratory sensation to feet bilaterally. Deep tendon reflexes are hyporeflexive throughout. Toes are equivocal. Gait is not tested for safety reasons. Cerebellar examination demonstrating intact ibgfvi-vy-wzht examination bilaterally. LABORATORY EXAMINATION: Shows sodium 143, potassium 4, BUN 17, creatinine 0.9, hemoglobin A1C 6.3. LFTs are normal. INR 1.04. Urinalysis shows less than 1 RBC and 5 WBCs. There are trace ketones and 1+ protein. White blood cell count 9700, hemoglobin 15, platelet count 222,000. CT scan of the head performed January 26 at 6:45 p.m. demonstrated moderate cerebral atrophy and baesfyht-gt-mnabbj periventricular small vessel disease. There is a small zone of left parietal hypodensity. MRI of the brain on January 27 demonstrated moderate cerebral atrophy and stpmwhkd-go-lxgwnk periventricular small vessel disease. The images demonstrated a left parietal cortical zone of acute ischemia as well as a left medial frontal cortical subacute ischemia. There is no mass or lesion. CTA of the head from January 26 demonstrated intracranial supracarinal internal carotid artery atherosclerosis. There is heitcrwm-kc-cackzr left posterior cerebral artery origin stenosis. There is also moderate right vertebral artery stenosis in the vertebrobasilar junction. There is fusiform dilatation and calcification in the supracarinal carotid artery bilaterally, but there is no saccular aneurysm. There is no AVM. IMPRESSION: 1. Nblommrn-id-umnwlp cerebrovascular disease. 2. 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 3. Proximal left posterior cerebral artery stenosis. 4. Left superior division M2 stenosis. 5. Borderline diabetes. 6. Hypertension. 7. Smoker. 8. Chronic heavy drinker. RECOMMENDATIONS: The patient presents with recurrent TIA. He has been treated in the past for a stroke and had been under the care of Dr. Minh Evans previously. Presently he has no headache, nausea, vomiting, signs of increased intracranial pressure, or neurological deficits. He had another transient ischemic attack. He had an acute stroke in the left parietal cortical region as well as left medial frontal region. The patient is advised that he has multiple risk factors for strokes including borderline diabetes, hypertension, heavy drinking as well as prior history of strokes. He was advised strongly to quit smoking and drinking and also to get his blood pressure and blood sugar under better control. He is advised that if he does not do so that he will likely have a much more significant stroke in the future. He has multifactorial stenosis in the intracranial vascular involving both the anterior and posterior circulation. He also has calcification and fusiform dilatation of the intracranial supracarinal internal carotid artery bilaterally. The fusiform dilatation is not a surgical disease. He is currently on baby aspirin. I would recommend changing his regimen to Aggrenox instead of baby aspirin alone. I will leave that to the discretion of the treating medical team and attending neurologist. I discussed the imaging findings to the patient and his in the room today. All questions were answered. They understand the importance of follow up medical care as well as improvement of his underlying medical risk factors. TY ALBARRAN M.D. [id number] MTDD
[2017-01-29 14:43] VITALS: BP 140/92; PULSE 80; TEMP 98.1
--- NOTE | 2017-01-29 16:25 | DS ---
Physical Exam: SUBJECTIVE: Patient seen and examined at bedside asymptomatic stable for discharge OBJECTIVE: Vital Signs Period Temp Pulse Resp BP Sys/Samuel Pulse Ox Last 24 Hr 97.7 F-98.3 F 58-87 18-20 140-152/68-98 95-96 PHYSICAL EXAM GENERAL: The patient is awake, alert, and fully oriented, in no acute distress. HEAD: Normal with no signs of trauma. EYES: PERRL, extraocular movements intact, sclera anicteric, conjunctiva clear. ENT: moist mucous membranes. NECK: supple. LUNGS: Breath sounds equal, clear to auscultation bilaterally, no wheezes, no crackles, no accessory muscle use. HEART: Regular rate and rhythm, S1, S2 ABDOMEN: Soft, nontender, nondistended, normoactive bowel sounds NEUROLOGICAL: Cranial nerves II through XII intact. Normal speech, gait WNL. muscles strength 5/5 no neurological deficits Neck CT angiography Clinical information: resolved right-sided numbness Multiplanar imaging was performed following intravenous bolus administration of nonionic contrast. Individual partition images as well as projection and reformatted images are reviewed. There is a mild approximately 50% stenosis at the origin of the left internal carotid artery. Evaluation of the extracranial right carotid artery demonstrates no evidence of stenosis. Several small calcified atherosclerotic plaques are seen along the extracranial internal carotid arteries. The extracranial vertebral arteries are patent bilaterally. No definite stenosis is seen. The vertebral artery origins are not optimally visualized due to beam hardening artifact. The intracranial exam demonstrates a probable moderate stenosis involving the superior division of the left middle cerebral artery. 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 There is mild fusiform dilatation of the supraclinoid left internal carotid artery with a 0.4 cm diameter. No saccular aneurysm is identified. Atherosclerotic calcification is seen along the precavernous, cavernous and supraclinoid segments of the internal carotid arteries. The basilar artery demonstrates a moderate to marked short segment stenosis within the lower third. There is a moderate to marked stenosis involving the origin of the proximal/P1 segment of the left posterior cerebral artery with associated mild poststenotic dilatation. A moderate stenosis is seen involving the intracranial right vertebral artery adjacent to the vertebrobasilar junction. IMPRESSION: A mild approximately 15% atherosclerotic stenosis is seen of the proximal extracranial left internal carotid artery. No extracranial right carotid artery stenosis is noted. Moderate stenoses are seen of the paraclinoid segments of the internal carotid arteries. A focal stenosis, probably moderate in degree, is seen of the superior division of the left middle cerebral artery. There is a moderate to marked basilar artery stenosis at the level of the lower third. A moderate to marked stenosis is seen within the proximal aspect of the left posterior cerebral artery. A moderate stenosis of the intracranial right vertebral arteries is noted adjacent to the vertebrobasilar junction. 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 Reported By: Timur Gregorio MD 01/27/[address] Neck CT angiography Clinical information: resolved right-sided numbness Multiplanar imaging was performed following intravenous bolus administration of nonionic contrast. Individual partition images as well as projection and reformatted images are reviewed. There is a mild approximately 50% stenosis at the origin of the left internal carotid artery. Evaluation of the extracranial right carotid artery demonstrates no evidence of stenosis. Several small calcified atherosclerotic plaques are seen along the extracranial internal carotid arteries. The extracranial vertebral arteries are patent bilaterally. No definite stenosis is seen. The vertebral artery origins are not optimally visualized due to beam hardening artifact. The intracranial exam demonstrates a probable moderate stenosis involving the superior division of the left middle cerebral artery. 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 There is mild fusiform dilatation of the supraclinoid left internal carotid artery with a 0.4 cm diameter. No saccular aneurysm is identified. Atherosclerotic calcification is seen along the precavernous, cavernous and supraclinoid segments of the internal carotid arteries. The basilar artery demonstrates a moderate to marked short segment stenosis within the lower third. There is a moderate to marked stenosis involving the origin of the proximal/P1 segment of the left posterior cerebral artery with associated mild poststenotic dilatation. A moderate stenosis is seen involving the intracranial right vertebral artery adjacent to the vertebrobasilar junction. IMPRESSION: A mild approximately 15% atherosclerotic stenosis is seen of the proximal extracranial left internal carotid artery. No extracranial right carotid artery stenosis is noted. Moderate stenoses are seen of the paraclinoid segments of the internal carotid arteries. A focal stenosis, probably moderate in degree, is seen of the superior division of the left middle cerebral artery. There is a moderate to marked basilar artery stenosis at the level of the lower third. A moderate to marked stenosis is seen within the proximal aspect of the left posterior cerebral artery. A moderate stenosis of the intracranial right vertebral arteries is noted adjacent to the vertebrobasilar junction. 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 LABS HOSPITAL COURSE: Date of Admission:01/26/17 Date of Discharge: 01/29/17 76M with history of HTN BPH and TIA presented to the hospital with s He had an MRI of his brain which showe an acute udden onset right sided hemiparesis. Code verdin activated and patients symptoms resolved while he was in the CT scan getting his initial head CT on presentation to the ED. Head CT negative (read as above) and also had carotid duplex done which was then evaluated by vascular surgery for the need for CEA. vascular surgery did not feel patient needed future surgical intervention and if he does need intervention he should be referred to a neuro interventionalist as an outpatient if he has these symptoms again. He had an MRI of the brain done which showed Left parietal lobe acute stroke. he had an Echo which showed impaired LV relaxation otherwise normal. Patient is stable for discharge. Minutes to complete discharge: 40 Discharge Summary Reason For Visit: TRANSIENT CEREBRAL ISCHEMIA Current Active Problems TIA (transient ischemic attack) (Acute) - Instructions Referrals: Veronica Scruggs [Primary Care Provider] - - Home Medications Comprehensive Discharge Medication List: Ambulatory Orders Clonidine HCl 0.2 mg PO BID 01/26/17 Tamsulosin HCl 0.4 mg PO DAILY 01/26/17 This patient is new to me today: Yes Date on this admission: 01/29/17 Emergency Visit: No Critical Care patient: No - Discharge Referral Referred to [facility] Med P.C.: No
--- NOTE | 2017-01-29 16:46 | PN ---
Teaching Attending Note Name of Resident: Tristin Abdalla ATTENDING PHYSICIAN STATEMENT I saw and evaluated the patient. I reviewed the resident's note and discussed the case with the resident. I agree with the resident's findings and plan as documented. Patient is feeling better with no acute distress, would like to go home. No shortness of breath, no nausea or vomiting, no headache Vital Signs Temperature 98.1 F 01/29/17 14:42 Pulse Rate 80 01/29/17 14:42 Respiratory Rate 18 01/29/17 14:42 Blood Pressure 140/92 01/29/17 14:42 O2 Sat by Pulse Oximetry (%) 96 01/29/17 09:00 CBCD WBC 9.7 K/mm3 (4.0-10.0) 01/26/17 19:00 RBC 4.75 M/mm3 (4.00-5.60) 01/26/17 19:00 Hgb 15.0 GM/dL (11.7-16.9) 01/26/17 19:00 Hct 44.9 % (35.4-49) 01/26/17 19:00 MCV 94.6 fl (80-96) 01/26/17 19:00 MCHC 33.3 g/dl (32.0-35.9) 01/26/17 19:00 RDW 15.3 % (11.9-15.9) 01/26/17 19:00 Plt Count 222 K/MM3 (134-434) 01/26/17 19:00 MPV 10.3 fl (7.5-11.1) 01/26/17 19:00 CMP Sodium 143 mmol/L (136-145) 01/27/17 11:11 Potassium 4.0 mmol/L (3.5-5.1) 01/27/17 11:11 Chloride 105 mmol/L (98-107) 01/27/17 11:11 Carbon Dioxide 29 mmol/L (21-32) 01/27/17 11:11 Anion Gap 9 (8-16) 01/27/17 11:11 BUN 17 mg/dL (7-18) 01/27/17 11:11 Creatinine 0.9 mg/dL (0.7-1.3) 01/27/17 11:11 Creat Clearance w eGFR > 60 (>60) 01/27/17 11:11 Random Glucose 91 mg/dL (74-106) 01/27/17 11:11 Calcium 10.1 mg/dL (8.5-10.1) 01/27/17 11:11 Total Bilirubin 0.6 mg/dL (0.2-1.0) D 01/27/17 11:11 AST 15 U/L (15-37) D 01/27/17 11:11 ALT 28 U/L (12-78) 01/27/17 11:11 Alkaline Phosphatase 93 U/L (45-117) 01/27/17 11:11 Total Protein 6.8 g/dl (6.4-8.2) 01/27/17 11:11 Albumin 3.8 g/dl (3.4-5.0) 01/27/17 11:11 CARDIAC ENZYMES Creatine Kinase 157 IU/L (39-308) 01/26/17 19:00 Troponin I < 0.02 ng/ml (0.00-0.05) 01/26/17 19:00 Current Medications Generic Name Dose Route Start Last Admin Trade Name Freq PRN Reason Stop Dose Admin Aspirin 81 mg 01/27/17 10:00 01/29/17 10:42 Ecotrin - PO 81 mg DAILY LAMONTE Administration Atorvastatin Calcium 10 mg 01/27/17 22:00 01/28/17 21:14 Lipitor - PO 10 mg HS LAMONTE Administration Sodium Chloride 1,000 mls @ 42 mls/hr 01/26/17 21:30 01/28/17 21:14 Normal Saline - IV 42 mls/hr ASDIR LAMONTE Administration Lisinopril 20 mg 01/27/17 10:00 01/29/17 10:42 Prinivil PO 20 mg DAILY LAMONTE Administration Metoprolol Tartrate 5 mg 01/26/17 21:26 Lopressor Injection - IVPUSH Q4H PRN HYPERTENSION Tamsulosin HCl 0.4 mg 01/27/17 22:43 01/28/17 21:14 Flomax - PO 0.4 mg HS LAMONTE Administration Hepatic Panel Total Bilirubin 0.6 mg/dL (0.2-1.0) D 01/27/17 11:11 AST 15 U/L (15-37) D 01/27/17 11:11 ALT 28 U/L (12-78) 01/27/17 11:11 Alkaline Phosphatase 93 U/L (45-117) 01/27/17 11:11 Albumin 3.8 g/dl (3.4-5.0) 01/27/17 11:11 Home Medications Medication Instructions Recorded Clonidine HCl 0.2 mg PO BID 01/26/17 Tamsulosin HCl 0.4 mg PO DAILY 01/26/17 ROS/PE: per resident Echocardiogram Normal CTA head and neck - mod stenosis L SOFTWARE RELEASE MANAGER, L MCA, aneurysmal dilation supraclinoid ica b/l- recommend vascular input on findings CD intimal thickening left common carotid artery ASSESSMENT/PLAN: 76 year old man with history of hypertension, BPH, presented with right side weakness. As per chart, the patient noted sudden onset of right hemiparesis while engaging in intercourse with his girlfriend, lasting approximately 45 minutes. The patient arrived at the ED yesterday, was noted to have an NIHSS 7, ct head was unremarkable. Code verdin was activated, however by the time the patient returned from CT his symptoms had resolved. Due to spontaneously resolving symptoms, he was not a candidate for IV-TPA. #Left parietal stroke, with possible left frontal stroke with right sided weakness completely resolved; Patient will follow with As per neuro continue with Aspirin only. #Hypertension better controlled will continue with Lisinipril daily # Hyperlipidemia continue Statin # History of BPH- stable no signs of urinary retention, continue flomax Continue aspirin, statin
== END 2017-01-29 17:35 | disposition home or self-care (01) | DRG 65 ==
LOC: JER 18:44 → JERBED 20:54 → J4S 01-27 00:25
PROVIDERS: ADMIT Internal Medicine; ATTEND Internal Medicine
DX: I63.9 Cerebral infarction, unspecified (principal); G81.91 Hemiplegia, unspecified affecting right dominant side; N40.0 Benign prostatic hyperplasia without lower urinary tract symptoms; E78.5 Hyperlipidemia, unspecified; I16.0 Hypertensive urgency; I72.0 Aneurysm of carotid artery
CPT/HCPCS: 36415; 70450-TC; 70496-TC; 70498-TC; 70551-TC; 71010-TC; 80053; 81003; 81015; 82465; 82550; 82553; 83036; 83718; 83721; 83735; 84100; 84443; 84478; 84484; 85025; 85610; 86850; 86900; 86901; 93005; 93010; 93306-TC; 93880-TC; 94640; 97116-GP; 97161-GP; 99285-25

== ENCOUNTER 2023-10-21 19:32 | Observation (INO) | payer OTHER, BC ==
[2023-10-21 20:21] LABS: BASO % 0.4 % (0-2.0); EOS % 4.4 % (0-4.5); HEMATOCRIT 33.5 % (35.4-49); HEMOGLOBIN 10.1 GM/dL (11.7-16.9); LYMPH % 22.2 % (8-40); MCH 21.6 pg (25.7-33.7); MCHC 30.1 g/dl (32.0-35.9); MEAN CELL VOLUME 71.7 fl (80-96); MEAN PLT VOLUME 8.3 fl (7.5-11.1); MONO % 8.1 % (3.8-10.2); NEUT % 64.9 % (42.8-82.8); PLATELET COUNT 295 10^3/uL (134-434); RBC 4.67 M/mm3 (4.00-5.60); RDW 22.8 % (11.9-15.9); WHITE BLOOD COUNT 10.4 K/mm3 (4.0-10.0)
[2023-10-21 20:25] LABS: POTASSIUM 4.1 mmol/L (3.5-5.1)
[2023-10-21 20:28] LABS: BLOOD UREA NITROGEN 20.1 mg/dL (7-18); CALCIUM 9.9 mg/dL (8.5-10.1)
[2023-10-21 20:29] LABS: ALBUMIN 3.5 g/dl (3.4-5.0)
[2023-10-21 20:31] LABS: CREATININE 0.8 mg/dL (0.55-1.3)
[2023-10-21 20:33] LABS: BILIRUBIN,TOTAL 0.2 mg/dL (0.2-1); TOT PROT 6.7 g/dl (6.4-8.2)
[2023-10-21 21:10] LABS: VENOUS BASE EXCESS 0.1 mmol/L (-2-2); VENOUS O2 SATURATION 26.2 % (70-80); VENOUS PCO2 55.8 mmHg (38-52); VENOUS PH 7.304 (7.310-7.410)
[2023-10-21 21:26] LABS: INR 1.01 (0.83-1.09); PROTHROMBIN TIME (PATIENT) 11.7 SEC (9.7-13.0)
[2023-10-21 21:29] LABS: ACTIVATED PTT 25.6 SECONDS (25.2-36.5)
[2023-10-21 21:31] LABS: ANISOCYTOSIS 2+; MACROCYTOSIS 1+; OVALOCYTE 1+; TARGET CELLS 1+; TEAR DROP CELLS 1+
[2023-10-21 21:32] LABS: PLATELET ESTIMATE ADEQUATE
[2023-10-21] MEDS ORDERED: DOCUSATE SODIUM 100 MG CAPSULE (FP) PO PRN (21:47)
[2023-10-21] MEDS ORDERED: ACETAMINOPHEN 325 MG TABLET (FP) PO PRN (21:47)
[2023-10-21] MEDS ORDERED: ONDANSETRON 4 MG/2 ML VIAL IVPUSH PRN (21:47)
[2023-10-21] MEDS ORDERED: FOLIC ACID INJECTION - 1 MG, THIAMINE HCL 100 MG, MULTIVIT INJECTION ADULT 10 ML in SOD... IVPB ONE (21:49)
[2023-10-21 23:02] LABS: URINE APPEARANCE CLEAR; URINE BILIRUBIN NEGATIVE (NEGATIVE); URINE COLOR YELLOW; URINE GLUCOSE (UA) NEGATIVE (NEGATIVE); URINE KETONE NEGATIVE (NEGATIVE); URINE LEUK ESTERASE NEGATIVE (NEGATIVE); URINE NITRITE NEGATIVE (NEGATIVE); URINE PROTEIN NEGATIVE (NEGATIVE); URINE UROBILINOGEN 0.2 mg/dL (0.2-1.0)
[2023-10-22] MEDS ORDERED: ATENOLOL 50 MG TABLET (FP) PO ONE (05:10)
[2023-10-22] MEDS ORDERED: LORazepam 1 MG TABLET PO PRN (06:51)
[2023-10-22 08:21] LABS: HEMATOCRIT 31.8 % (35.4-49); HEMOGLOBIN 9.7 GM/dL (11.7-16.9); MCH 21.8 pg (25.7-33.7); MCHC 30.5 g/dl (32.0-35.9); MEAN CELL VOLUME 71.5 fl (80-96); MEAN PLT VOLUME 8.8 fl (7.5-11.1); PLATELET COUNT 312 10^3/uL (134-434); RBC 4.45 M/mm3 (4.00-5.60); RDW 22.4 % (11.9-15.9); WHITE BLOOD COUNT 7.1 K/mm3 (4.0-10.0)
[2023-10-22 08:29] LABS: POTASSIUM 4.5 mmol/L (3.5-5.1)
[2023-10-22 08:31] LABS: BLOOD UREA NITROGEN 14.9 mg/dL (7-18); MAGNESIUM 1.9 mg/dL (1.8-2.4)
[2023-10-22 08:34] LABS: CREATININE 0.7 mg/dL (0.55-1.3); PHOSPHOROUS 2.9 mg/dL (2.5-4.9)
[2023-10-22] MEDS ORDERED: ASPIRIN 81 MG CHEWABLE TABLETS ONE (09:02)
[2023-10-22] MEDS ORDERED: TAMSULOSIN HCL 0.4 MG CAP ONE (09:02)
[2023-10-22] MEDS: TAMSULOSIN HCL 0.4 MG CAP PO SCH ×2 (09:05→21:01)
[2023-10-22] MEDS: ASPIRIN COATED 81 MG TABLET.EC PO SCH (09:05)
[2023-10-22 15:24] VITALS: RESP 18; BMI 24.9
[2023-10-22] MEDS ORDERED: FUROSEMIDE 40 MG TABLET (FP) PO ONE (15:43)
[2023-10-22] MEDS: amLODIPine BESYLATE 10 MG TABLET (FP) PO SCH (15:48)
[2023-10-22] MEDS ORDERED: ATENOLOL 50 MG TABLET (FP) PO SCH (22:00)
[2023-10-23] MEDS: TAMSULOSIN HCL 0.4 MG CAP PO SCH (08:38)
[2023-10-23 09:19] VITALS: BP 146/91; PULSE 56; TEMP 97.7
[2023-10-23] MEDS: ASPIRIN COATED 81 MG TABLET.EC PO SCH (09:33)
[2023-10-23] MEDS: amLODIPine BESYLATE 10 MG TABLET (FP) PO SCH (09:33)
[2023-10-23] MEDS ORDERED: MULTIVITAMINS (DAILY MVI) TABLET (FP) PO SCH (10:00)
[2023-10-23] MEDS ORDERED: THIAMINE HCL 100 MG TABLET (FP) PO SCH (10:00)
[2023-10-23] MEDS ORDERED: FOLIC ACID 1 MG TABLET (FP) PO ONE (21:50)
[2023-10-23] MEDS ORDERED: ATORVASTATIN CA 80 MG TABLET (FP) PO SCH (22:00)
== END 2023-10-23 15:53 | disposition home or self-care (01) ==
LOC: JER 19:32 → JERBED 21:46 → J4W 10-22 14:28
PROVIDERS: ADMIT Internal Medicine; ATTEND Family Medicine
PROC: 3E033GC Introduction of Other Therapeutic Substance into Peripheral Vein, Percutaneous Approach (ICD-10-PCS; principal; 2023-10-21)
DX: R41.82 Altered mental status, unspecified (principal); F10.99 Alcohol use, unspecified with unspecified alcohol-induced disorder; F19.10 Other psychoactive substance abuse, uncomplicated; I10 Essential (primary) hypertension; N40.0 Benign prostatic hyperplasia without lower urinary tract symptoms; Z86.73 Personal history of transient ischemic attack (TIA), and cerebral infarction without residual deficits; Z91.013 Allergy to seafood
CPT/HCPCS: 0241U-QW; 36415; 70450-TC; 71045-TC-FY; 80048; 80053; 80061; 80307; 81003; 82550; 82553; 82803; 82962; 83036; 83735; 84100; 84484; 85025; 85027; 85610; 85730; 86850; 86900; 86901; 93005; 93010; 96365; 97116-GP; 97162-GP; 99285-25; G0378